=== PATIENT | male | born 1960 | race Caucasian/White ===

== ENCOUNTER → 2016-07-02 | Outpatient (CLI) | payer BC ==
[~2016-07-02] MED LIST: DILT60CA PO; GADOBUTROL 10mMol/10ml INJECTION IV ONE; METO-275 PO; PRAV40TA3 PO; SALINE FLUSH 10ml SYRINGE ONE; WARF10TA23 PO
--- NOTE | 2016-07-03 09:12 | DI ---
Indication: ITS.REASON: R42; H91.92 PROCEDURE: MRI BRAIN W/WO CONTRAST: Encounter: Initial Comparisons: None Technique: Multiplanar, multisequence, MR imaging of the head with and without contrast was acquired. Contrast: 10 mL of Gadavist FINDINGS: The ventricles are of normal size, shape, and contour for the patient's age. There are small nonspecific punctate areas of T2-weighted and T2 FLAIR weighted signal abnormality in the deep frontoparietal white matter that most likely represent small vessel ischemic disease. This is of a degree that is considered to be normal for the patient's age. The brain stem, cerebellum, and cerebral hemispheres otherwise have a normal morphologic appearance as well as MR signal intensity on all pulse sequences. Following intravenous administration of contrast, no areas of abnormal enhancement are evident. There are no areas of restricted diffusion to suggest an acute infarct. There is no evidence of an intracranial mass lesion, intracranial hemorrhage, or hydrocephalus. The visualized portions of the orbits, calvarium, paranasal sinuses, and skull base demonstrate no significant abnormality. Small mucus retention cysts in both maxillary sinuses. IMPRESSION: Unremarkable MRI of the head for the patient's age with and without contrast. .
== END ==
LOC: IMA 19:25
DX: R42 Dizziness and giddiness (principal); H91.92 Unspecified hearing loss, left ear
CPT/HCPCS: 70553; A9585